=== PATIENT | female | born 1995 | race Two or more races ===

== ENCOUNTER 2023-04-06 13:53 | Emergency (ER) | payer MEDICAID, OTHER ==
[~2023-04-06] VITALS: Ht 165.1 cm; Wt 79.4 kg
[2023-04-06] MEDS ORDERED: FLUO10CA26 PO (14:04)
[2023-04-06 15:52] VITALS: BP 121/70; O2SAT 100
== END 2023-04-06 16:03 | disposition home or self-care (01) ==
LOC: ER 13:53
DX: N63.0 Unspecified lump in unspecified breast (principal); Z79.899 Other long term (current) drug therapy
CPT/HCPCS: 76642; A4663